=== PATIENT | female | born 1990 | race American Indian/Alaskan Native ===

== ENCOUNTER 2020-07-13 19:59 | Emergency (ER) | payer SELFPAY ==
[2020-07-13] MEDS ORDERED: ALBUTEROL 2.5 MG/3 ML NEBU IH ONE ×2 (20:06→20:49)
[2020-07-13] MEDS ORDERED: IPRATROPIUM 0.02% NEBU 2.5 ML IH ONE ×2 (20:06→20:49)
[2020-07-13] MEDS ORDERED: predniSONE 20 MG TAB PO ONE (20:06)
--- NOTE | 2020-07-13 20:06 | Emergency Department Report ---
Blank Doc - Documentation Documentation: 30-year-old female that presents with SOB with wheezing. HX of asthma. Exam: diffuse wheezing noted. This initial assessment/diagnostic orders/clinical plan/treatment(s) is/are subject to change based on patient's health status, clinical progression and re- assessment by fellow clinical providers in the ED. Further treatment and workup at subsequent clinical providers discretion. Patient/guardians urged not to elope from the ED as their condition may be serious if not clinically assessed and managed. Initial orders include: 1- Patient sent to [facility] for further evaluation and treatment 2- breathing treatment
[2020-07-13 20:08] VITALS: BP 129/78
[2020-07-13 20:58] LABS: Basophils # (Auto) 0.1 K/mm3 (0.0-0.1); Hemoglobin 13.7 gm/dl (10.1-14.3); Lymphocytes # (Auto) 2.4 K/mm3 (1.2-5.4); Lymphocytes % (Auto) 22.4 % (13.4-35.0); Mean Corpuscular HGB Conc 34 % (30-34); Mean Corpuscular Volume 85 fl (79-97); Monocytes # (Auto) 0.6 K/mm3 (0.0-0.8); Monocytes % (Auto) 5.8 % (0.0-7.3); Platelet Count 323 K/mm3 (140-440); Red Blood Count 4.69 M/mm3 (3.65-5.03)
[2020-07-13] MEDS: LEVALBUTEROL 0.63 MG/3 ML NEBU IH ONE ×2 (20:59→22:42)
[2020-07-13 21:05] LABS: Alanine Aminotransferase 32 units/L (7-56); Albumin 4.2 g/dL (3.9-5); BUN/Creatinine Ratio 9; Blood Urea Nitrogen 8 mg/dL (7-17); Calcium 9.7 mg/dL (8.4-10.2); Hemolysis Index 5
--- NOTE | 2020-07-13 21:32 | XRay Report ---
CHEST 2 VIEWS INDICATION / CLINICAL INFORMATION: Chest Pain. COMPARISON: None available. FINDINGS: SUPPORT DEVICES: None. HEART / MEDIASTINUM: No significant abnormality. LUNGS / PLEURA: No significant pulmonary or pleural abnormality. No pneumothorax. ADDITIONAL FINDINGS: No significant additional findings. IMPRESSION: No acute cardiac pulmonary abnormality. Signer Name: Rusty Mcnulty MD Signed: 07/13/2020 9:27 PM Workstation Name: [id number]
[2020-07-13 21:35] LABS: INR 1.06 (0.87-1.13)
[2020-07-13 21:36] LABS: Partial Thromboplastin Time 28.5 Sec. (24.2-36.6)
[2020-07-13] MEDS ORDERED: LEVALBUTEROL 1.25 MG/3 ML NEB IH ONE (22:33)
[2020-07-13] MEDS ORDERED: LEVALBUTEROL 0.63 MG/3 ML NEBU IH ONE (22:35)
--- NOTE | 2020-07-14 00:11 | Cat Scan Report ---
CTA CHEST WITH IV CONTRAST INDICATION: Dyspnea. TECHNIQUE: Axial CT images were obtained through the chest after injection of IV contrast. 3 plane MIP reconstru ctions were produced. All CT scans at this location are performed using CT dose reduction for ALARA b y means of automated exposure control. COMPARISON: None available. FINDINGS: Pulmonary Arteries: No pulmonary emboli. Thoracic Aorta: No acute abnormality. Heart: Normal. Lungs: No acute air space or interstitial disease. There is a 3 mm subpleural nodule lateral right mi ddle lobe 262. Pleura: No pleural effusion. No pneumothorax. Lymph Nodes: No significant adenopathy. Additional Findings: Soft tissue density in the anterior mediastinum is likely residual thymic tissue . Upper Abdomen: No acute findings. Skeletal Structures: No significant osseous abnormality. IMPRESSION: 1. No CT evidence for pulmonary embolism. 2. No acute findings. 3. Single incidental pulmonary nodule(s) in the right middle lobe measuring 3 mm with solid character istics. - Recommendation according to Fleischner Society 2017 Guidelines: Low Risk Patient: No routine follow -up; High Risk Patient: Optional CT at 12 months. Signer Name: Ruben Howard MD Signed: 07/14/2020 12:06 AM Workstation Name: [id number]
--- NOTE | 2020-07-14 00:49 | Emergency Department Report ---
- General Chief Complaint: Adult Asthma Stated Complaint: ASTHMA ATTACK PUI?: No Time Seen by Provider: 07/13/20 20:05 Source: patient Mode of arrival: Ambulatory Limitations: No Limitations - History of Present Illness Initial Comments: Patient is a 30-year-old -[place] female with a history of asthma who presents to the ED with acute onset persistent severe nasal and sinus congestion, persistent dry cough with wheezing and shortness of breath for the last 12 hours. Patient states that she just arrived from [facility] and forgot to bring along her albuterol inhaler and nebulizers together with the equipment and was unable to use anything prior to arrival in the ED. Patient states that the symptoms have worsened in the last 6 hours such that she has not been able to breathe because of chest tightness, shortness of breath and cough. Patient denies fever, chills, nausea and vomiting, dizziness, syncope, hemoptysis, pleuritic chest pain, abdominal pain, change in vision, seizures, sore throat or dysuria and urinary frequency and urgency and headache. MD Complaint: cough, rhinorrhea, nasal congestion, other (Shortness of breath and wheezing) -: Sudden, hour(s) (12) Severity: moderate Severity scale (0 -10): 4 Quality: aching Consistency: intermittent Improves With: nothing Worsens With: nothing Associated Symptoms: denies other symptoms, rhinorrhea, nasal congestion, cough, shortness of breath. denies: fever, myalgias, diaphoresis, headache, sore throat, chest pain, abdominal pain, nausea, vomiting, diarrhea, dysuria, rash, weight loss, epistaxis, ear pain, other Treatments Prior to Arrival: none - Related Data Previous Rx's Medication Instructions Recorded Last Taken Type ALBUTEROL NEB's [Proventil 0.083% 3 ml IH Q6H PRN #75 ml 07/14/20 Unknown Rx NEBS] Albuterol Sulfate [Proventil Hfa] 1 - 2 puff IH Q6H PRN #1 hfa.aer.ad 07/14/20 Unknown Rx Benzonatate [Tessalon Perles] 100 mg PO Q8HR #30 capsule 07/14/20 Unknown Rx Ibuprofen [Motrin] 600 mg PO Q8H PRN #24 tablet 07/14/20 Unknown Rx Prednisone [predniSONE 10 mg 10 mg PO .TAPER #21 tab.ds.pk 07/14/20 Unknown Rx (6-Day Pack, 21 Tabs)] Allergies Allergy/AdvReac Type Severity Reaction Status Date / Time Sulfa (Sulfonamide Allergy Unknown Verified 07/13/20 20:57 Antibiotics) ED Review of Systems ROS: Stated complaint: ASTHMA ATTACK Other details as noted in HPI Constitutional: denies: chills, fever Eyes: denies: eye pain, eye discharge, vision change ENT: congestion Respiratory: cough, shortness of breath, wheezing Cardiovascular: denies: chest pain, palpitations Endocrine: no symptoms reported Gastrointestinal: denies: abdominal pain, nausea, diarrhea Genitourinary: denies: urgency, dysuria, discharge Musculoskeletal: denies: back pain, joint swelling, arthralgia Skin: denies: rash, lesions Neurological: denies: headache, weakness, paresthesias Psychiatric: denies: anxiety, depression Hematological/Lymphatic: denies: easy bleeding, easy bruising ED Past Medical Hx - Past Medical History Previous Medical History?: Yes Hx Asthma: Yes - Surgical History Past Surgical History?: Yes Additional Surgical History: tybaligation - Social History Smoking Status: Never Smoker Substance Use Type: None - Medications Home Medications: Home Medications Medication Instructions Recorded Confirmed Last Taken Type ALBUTEROL NEB's [Proventil 0.083% 3 ml IH Q6H PRN #75 ml 07/14/20 Unknown Rx NEBS] Albuterol Sulfate [Proventil Hfa] 1 - 2 puff IH Q6H PRN #1 hfa.aer.ad 07/14/20 Unknown Rx Benzonatate [Tessalon Perles] 100 mg PO Q8HR #30 capsule 07/14/20 Unknown Rx Ibuprofen [Motrin] 600 mg PO Q8H PRN #24 tablet 07/14/20 Unknown Rx Prednisone [predniSONE 10 mg 10 mg PO .TAPER #21 tab.ds.pk 07/14/20 Unknown Rx (6-Day Pack, 21 Tabs)] ED Physical Exam - General Limitations: No Limitations General appearance: alert, in no apparent distress - Head Head exam: Present: atraumatic, normocephalic, normal inspection - Eye Eye exam: Present: normal appearance, PERRL, EOMI Pupils: Present: normal accommodation - ENT ENT exam: Present: normal orophraynx, mucous membranes moist, TM's normal bilaterally, normal external ear exam, other (Grossly congested nasal passages) - Neck Neck exam: Present: normal inspection, full ROM. Absent: tenderness - Respiratory Respiratory exam: Present: wheezes (Mildly diffuse coarse wheezes throughout). Absent: respiratory distress, rales, rhonchi, stridor, chest wall tenderness, a ccessory muscle use, decreased breath sounds, prolonged expiratory - Cardiovascular Cardiovascular Exam: Present: normal rhythm, tachycardia, normal heart sounds. Absent: systolic murmur, diastolic murmur, rubs, gallop - GI/Abdominal GI/Abdominal exam: Present: soft, normal bowel sounds. Absent: distended, tenderness, guarding, rebound, hyperactive bowel sounds, hypoactive bowel sounds, organomegaly - Extremities Exam Extremities exam: Present: normal inspection, full ROM, normal capillary refill - Back Exam Back exam: Present: normal inspection, full ROM. Absent: tenderness, CVA tenderness (R), CVA tenderness (L), muscle spasm, paraspinal tenderness - Neurological Exam Neurological exam: Present: alert, oriented X3, CN II-XII intact, normal gait, reflexes normal - Psychiatric Psychiatric exam: Present: normal affect, normal mood - Skin Skin exam: Present: warm, dry, intact, normal color. Absent: rash ED Course Vital Signs 07/13/20 07/13/20 07/13/20 20:05 21:42 22:53 Temperature 98.8 F Pulse Rate 122 H Pulse Rate [ 104 H 92 H Bilateral Throughout] Respiratory 18 Rate Respiratory 22 18 Rate [Bilateral Throughout] Blood Pressure 129/78 O2 Sat by Pulse 100 Oximetry ED Medical Decision Making - Lab Data Result diagrams: 07/13/20 20:27 07/13/20 20:27 - Radiology Data Radiology results: report reviewed, image reviewed Findings [facility] [address] [place] [address] XRay Report Signed Patient: DILIP PEREZ MR# : [id number] : 1990 Acct:[id number] Age/Sex: 30 / F ADM Date: 07/13/20 Loc: ED Attending Dr: Ordering Physician: ADRIA HERNÁNDEZ NP Date of Service: 07/13/20 Procedure(s): XR chest routine 2V Accession Number(s): [id number] cc: ADRIA BABAYEV,REGISTERED PUBLIC HEALTH NURSE Fluoro Time In Minutes: CHEST 2 VIEWS INDICATION / CLINICAL INFORMATION: Chest Pain. COMPARISON: None available. FINDINGS: SUPPORT DEVICES: None. HEART / MEDIASTINUM: No significant abnormality. LUNGS / PLEURA: No significant pulmonary or pleural abnormality. No pneumothorax. ADDITIONAL FINDINGS: No significant additional findings. IMPRESSION: No acute cardiac pulmonary abnormality. Signer Name: Homero Mcnulty MD Signed: 07/13/2020 9:27 PM Workstation Name: [id number] Transcribed By: SS Dictated By: HOMERO MCNULTY Electronically Authenticated By: HOMERO MCNULTY Signed Date/Time: 07/13/202126 DD/ 26 TD/TT: [place] [address] Cat Scan Report Signed Patient: DILIP PEREZ MR# : [id number] : 1990 Acct:[id number] Age/Sex: 30 / F ADM Date: 07/13/20 Loc: ED Attending Dr: Ordering Physician: LAURA AMOS Date of Service: 07/13/20 Procedure(s): CT angio chest Accession Number(s): [id number] cc: LAURA AMOS CTA CHEST WITH IV CONTRAST INDICATION: Dyspnea. TECHNIQUE: Axial CT images were obtained through the chest after injection of IV contrast. 3 plane MIP reconstructions were produced. All CT scans at this location are performed using CT dose reduction for ALARA by means of automated exposure control. COMPARISON: None available. FINDINGS: Pulmonary Arteries: No pulmonary emboli. Thoracic Aorta: No acute abnormality. Heart: Normal. Lungs: No acute air space or interstitial disease. There is a 3 mm subpleural nodule lateral right middle lobe 262. Pleura: No pleural effusion. No pneumothorax. Lymph Nodes: No significant adenopathy. Additional Findings: Soft tissue density in the anterior mediastinum is likely residual thymic tissue. Upper Abdomen: No acute findings. Skeletal Structures: No significant osseous abnormality. IMPRESSION: 1. No CT evidence for pulmonary embolism. 2. No acute findings. 3. Single incidental pulmonary nodule(s) in the right middle lobe measuring 3 mm with solid characteristics. - Recommendation according to Fleischner Society 2017 Guidelines: Low Risk Patient: No routine follow-up; High Risk Patient: Optional CT at 12 months. Signer Name: Ruben Howard MD Signed: 07/14/2020 12:06 AM Workstation Name: [id number] Transcribed By: MEHRAN Dictated By: Ruben Howard MD Electronically Authenticated By: Ruben Howard MD Signed Date/Time: 07/14/20 0006 DD/ 0003 TD/TT: - Medical Decision Making This is a 30-year-old -[place] female with a history of asthma who presents to the ED with acute onset persistent severe nasal and sinus congestion, persistent dry cough with wheezing and shortness of breath for the last 12 hours. Patient states that she just arrived from [facility] and forgot to bring along her albuterol inhaler and nebulizers together with the equipment and was unable to use anything prior to arrival in the ED. Patient states that the symptoms have worsened in the last 6 hours such that she has not been able to breathe because of chest tightness, shortness of breath and cough. In the ED, patient is alert and oriented x3 and is not in distress but afebrile and tachycardic in triage. Patient received nebulizer treatments in the ED, also given oral steroids for asthma attack. Chest x-ray showed no acute cardiopulmonary abnormalities or pneumonitis. Other lab test results were reviewed and are nonactionable except for d-dimer level of 1269.06. Chest CTA with contrast showed no evidence of PE or any acute abnormalities. It however showed a single incidental pulmonary nodule(s) in the right middle lobe measuring 3 mm with solid characteristics, and 12-month CT a chest repeat advised. On reevaluation, patient wheezing resolved with medications. Patient was discharged home on medications and was given a referral to the primary care physician's office and was advised return to the ED immediately if symptoms get worse.. - Differential Diagnosis Asthma; bronchitis; URI; sinusitis; pneumonia; PE; ACS Critical care attestation.: If time is entered above; I have spent that time in minutes in the direct care of this critically ill patient, excluding procedure time. ED Disposition Clinical Impression: Acute bronchitis with asthma, Acute upper respiratory infection, Shortness of breath Disposition: TO HOME OR SELFCARE Is pt being admited?: No Does the pt Need Aspirin: No Condition: Stable Instructions: Acute Bronchitis (ED), Asthma (ED), Upper Respiratory Infection (ED) Additional Instructions: Take medication as advised, drink plenty of fluids and follow-up with your primary care physician in 3 to 5 days for reevaluation. Return to the ED immediately if symptoms get worse. Prescriptions: Ibuprofen [Motrin] 600 mg PO Q8H PRN #24 tablet PRN Reason: Pain Prednisone [predniSONE 10 mg (6-Day Pack, 21 Tabs)] 10 mg PO .TAPER #21 tab.ds.pk ALBUTEROL NEB's [Proventil 0.083% NEBS] 3 ml IH Q6H PRN #75 ml PRN Reason: Wheezing Albuterol Sulfate [Proventil Hfa] 1 - 2 puff IH Q6H PRN #1 hfa.aer.ad PRN Reason: Dyspnea Benzonatate [Tessalon Perles] 100 mg PO Q8HR #30 capsule Referrals: [facility] [Provider Group] - 3-5 Days CLARISA HAIR MD [Staff Physician] - 3-5 Days Time of Disposition: 00:54 Print Language: [place]
== END 2020-07-14 01:04 | disposition home or self-care (01) ==
LOC: ED 19:59
DX: J06.9 Acute upper respiratory infection, unspecified (principal); R06.02 Shortness of breath; J45.909 Unspecified asthma, uncomplicated; Z79.899 Other long term (current) drug therapy; Z88.2 Allergy status to sulfonamides; Z98.51 Tubal ligation status
CPT/HCPCS: 36415; 71046; 71275; 80053; 84484; 84703; 85025; 85379; 85610; 85730; 93005; 94640; 99285; J7512; Q9967; 94644

== ENCOUNTER 2020-07-14 18:58 | Emergency (ER) | payer SELFPAY | END 2020-07-14 21:01 | disposition left against medical advice (07) | LOC: ED 18:58 | DX: R10.9 Unspecified abdominal pain (principal); Z53.21 Procedure and treatment not carried out due to patient leaving prior to being seen by health care provider ==